=== PATIENT | male | born 1990 | race Two or more races ===

== ENCOUNTER 2022-07-31 23:46 | Emergency (ER) | payer MEDICAID ==
[~2022-07-31] VITALS: Ht 188 cm; Wt 122.5 kg
[2022-08-01 00:02] VITALS: BP 141/94
== END 2022-08-01 04:16 | disposition left against medical advice (07) ==
LOC: ER 23:46
DX: H92.09 Otalgia, unspecified ear (principal); Z53.21 Procedure and treatment not carried out due to patient leaving prior to being seen by health care provider